=== PATIENT | male | born 1980 | race Caucasian/White ===

== ENCOUNTER 2019-05-16 17:38 | Emergency (ER) | payer OTHER | END 2019-05-16 18:30 | disposition home or self-care (01) | LOC: JERFT 17:38 ==

== ENCOUNTER 2020-02-01 18:32 | Emergency (ER) | payer OTHER ==
[2020-02-01 18:53] VITALS: TEMP 98.2; BMI 25.0
--- NOTE | 2020-02-01 19:38 | PDOC ---
History of Present Illness - General Chief Complaint: Urinary Problem Stated Complaint: PAINFUL URINATION Time Seen by Provider: 02/01/20 19:38 History Source: Patient Exam Limitations: No Limitations - History of Present Illness Initial Comments: 02/01/20 20:16 Chief complaint: Urinary pain Patient is 39-year-old male with no medical problems who is complaining of pain on urination, mucus and feeling of not finishing urination today. No fever. Patient denies any testicular pain. GENERAL/CONSTITUTIONAL: No fever, weakness. dizziness HEAD, EYES, EARS, NOSE AND THROAT: No change in vision. No ear pain or discharge. No sore throat. CARDIOVASCULAR: No chest pain RESPIRATORY: No shortness of breath or cough GASTROINTESTINAL: No pain, nausea, vomiting, diarrhea or constipation GENITOURINARY: +dysuria MUSCULOSKELETAL: No neck or back pain SKIN: No rash NEUROLOGIC: No headache, vertigo, loss of consciousness, or loss of sensation. GENERAL: The patient is awake, alert, and fully oriented, in no acute distress. HEAD: Normal with no signs of trauma. EYES: Pupils equal, round and reactive to light, sclera anicteric, conjunctiva clear. ENT: pharynx: no erythema, no exudate, uvula midline NECK: supple CHEST: clear, nontender, rr ABD: soft, nontender Genitals: Uncircumcised, some yellow discharge, some redness to the opening of the penis, able to fully retract foreskin and bring back without any difficulty. No other swelling, lesions, testicular tenderness, erythema.no lymphadenopathy BACK: no tenderness or signs of injury EXTREMITIES: Normal range of motion, no edema. NEUROLOGICAL: Normal speech, normal gait. SKIN: Warm, Dry 02/01/20 20:33 Past History - Past Medical History Allergies/Adverse Reactions: Allergies Allergy/AdvReac Type Severity Reaction Status Date / Time No Known Allergies Allergy Verified 02/01/20 18:48 Home Medications: Ambulatory Orders Tobramycin 0.3% Ophth Soln [Tobrex Ophthalmic Solution -] 1 drop OS Q4HWA 5 Days #1 bottle 05/16/19 Cephalexin [Keflex] 1,000 mg PO BID #28 capsule 02/01/20 Clotrimazole [Lotrimin -] 1 applic TP BID #1 tube 02/01/20 Fluconazole [Diflucan] 150 mg PO ONCE #1 tablet 02/01/20 COPD: No - Surgical History Cholecystectomy: No - Immunization History Immunization Up to Date: No - Psycho Social/Smoking Cessation Hx Smoking History: Never smoked Have you smoked in the past 12 months: No Information on smoking cessation initiated: No Hx Alcohol Use: No Drug/Substance Use Hx: No *Physical Exam - Vital Signs Last Vital Signs Temp Pulse Resp BP Pulse Ox 98.2 F 78 17 130/77 99 02/01/20 18:49 02/01/20 18:49 02/01/20 18:49 02/01/20 18:49 02/01/20 18:49 Medical Decision Making - Medical Decision Making 02/01/20 20:17 Healthy 39-year-old male with 1 day of dysuria, will send UA, urine culture, STD screening although patient states last time he had sex was 2 weeks ago with his . 02/01/20 20:32 Patient found to have discharge from his penis, will treat for STDs, will check UA, will also give him something for Hanna. Patient did confirm with his that she had gone to the doctor and she was also given something for Hanna. Patient has UTI, will put on Keflex, will also give a topical antifungal and Diflucan 150. Patient also given handwritten information regarding follow-up with urology with Dr. Smith. Does not think he has STD, will wait on culture Discussed issues, findings, results, applicable medications and treatments and follow-up. All these were understood and all questions were answered 02/01/20 20:56 Discharge - Discharge Information Problems reviewed: Yes Clinical Impression/Diagnosis: Urinary tract infection Qualifiers: Urinary tract infection type: urethritis Qualified Code(s): N34.2 - Other urethritis Condition: Stable Disposition: HOME - Admission No - Additional Discharge Information Prescriptions: Fluconazole [Diflucan] 150 mg PO ONCE #1 tablet Cephalexin [Keflex] 1,000 mg PO BID #28 capsule Clotrimazole [Lotrimin -] 1 applic TP BID #1 tube - Follow up/Referral - Patient Discharge Instructions Additional Instructions: Drink 2-3 L of water daily Take the Keflex 1000 mg twice a day for 7 days take Acidophilus to help prevent yeast infection or stomach upset Use the clotrimazole cream as directed, take the Diflucan 1 tablet Return ER if fever, vomiting, feeling sicker Follow-up with your doctor in 2-3 days - Post Discharge Activity
[2020-02-01 20:52] LABS: EPI CELLS 0.1 /HPF (0-5/HPF); HYALINE CASTS 5 /lpf (0-8); URINE APPEARANCE CLOUDY; URINE BACTERIA 23.4 /hpf (NEGATIVE); URINE BILIRUBIN NEGATIVE (NEGATIVE); URINE COLOR YELLOW; URINE GLUCOSE (UA) NEGATIVE (NEGATIVE); URINE KETONE NEGATIVE (NEGATIVE); URINE LEUK ESTERASE 3+ (NEGATIVE); URINE NITRITE NEGATIVE (NEGATIVE); URINE PROTEIN NEGATIVE (NEGATIVE); URINE RBC 18 /hpf (0-4); URINE WBC 269 /hpf (0-5)
[2020-02-01 21:10] VITALS: BP 128/79; PULSE 74
== END 2020-02-01 21:05 | disposition home or self-care (01) ==
LOC: JERFT 18:32
DX: N34.2 Other urethritis (principal)
CPT/HCPCS: 36415; 81003; 87086; 87491; 87591; 99283-25

== ENCOUNTER 2020-02-07 17:26 | Emergency (ER) | payer OTHER ==
--- NOTE | 2020-02-07 17:42 | PDOC ---
History of Present Illness - General Chief Complaint: RX Refill Stated Complaint: REVALUATION Time Seen by Provider: 02/07/20 17:34 History Source: Patient Exam Limitations: No Limitations - History of Present Illness Initial Comments: 02/07/20 17:37 39 y/[facility]. Pt states +. Timing/Duration: other Severity: mild Associated Symptoms: reports: other Past History - Travel Traveled outside of the country in the last 30 days: No Close contact w/someone who was outside of country & ill: No - Past Medical History Allergies/Adverse Reactions: Allergies Allergy/AdvReac Type Severity Reaction Status Date / Time No Known Allergies Allergy Verified 02/07/20 17:38 Home Medications: Ambulatory Orders Tobramycin 0.3% Ophth Soln [Tobrex Ophthalmic Solution -] 1 drop OS Q4HWA 5 Days #1 bottle 05/16/19 Cephalexin [Keflex] 1,000 mg PO BID #28 capsule 02/01/20 Clotrimazole [Lotrimin -] 1 applic TP BID #1 tube 02/01/20 Fluconazole [Diflucan] 150 mg PO ONCE #1 tablet 02/01/20 Doxycycline Hyclate 100 mg PO BID 7 Days #14 tablet 02/05/20 COPD: No - Surgical History Cholecystectomy: No - Immunization History Immunization Up to Date: No - Psycho Social/Smoking Cessation Hx Smoking History: Never smoked Have you smoked in the past 12 months: No Hx Alcohol Use: No Drug/Substance Use Hx: No Patient Lives Alone: No Lives with/in: spouse/SO Review of Systems - Review of Systems Able to Perform ROS?: Yes Is the patient limited Jamaican proficient: No Constitutional: No: Symptoms Reported ABD/GI: No: Symptoms Reported : Yes: Discharge Musculoskeletal: No: Symptoms Reported Integumentary: No: Symptoms Reported Neurological: No: Symptoms reported *Physical Exam - Physical Exam General Appearance: Yes: Nourished, Appropriately Dressed. No: Apparent Distress Musculoskeletal: negative: CVA Tenderness Extremity: positive: Normal Inspection Integumentary: positive: Normal Color, Warm, Moist Neurologic: positive: Motor Strength 5/5 (ambulatory) Medical Decision Making - Medical Decision Making 02/07/20 17:39 CC: needs tx for gonorrhea Exam: vss Plan: as per call notes pt was prescribed doxy which he states is on. He only came here because of the phone call [facility] who was unaware he was given an rx Discharge home to complete doxy, refrain form sex intercourse x 1 week and f/u in 1 month for retesting unless s/s continue Discharge - Discharge Information Problems reviewed: Yes Clinical Impression/Diagnosis: Gonorrhea Condition: Good Disposition: HOME - Follow up/Referral - Patient Discharge Instructions Patient Printed Discharge Instructions: DI for Gonorrhea Additional Instructions: Continue to take medication until completed. No sex x 7 dys Consider follow up in 1 month for retesting unless symptomatic. - Post Discharge Activity
[2020-02-07 17:43] VITALS: BP 132/87; PULSE 60; TEMP 98; BMI 27.4
== END 2020-02-07 17:47 | disposition home or self-care (01) ==
LOC: JER 17:26
DX: A54.9 Gonococcal infection, unspecified (principal)
CPT/HCPCS: 99282-25